=== PATIENT | male | born 1960 | race Caucasian/White ===

== ENCOUNTER 2023-01-14 20:58 | Outpatient (CLI) | payer BC, SELFPAY | END 2023-01-14 20:59 | disposition home or self-care (01) | PROVIDERS: PCP Family Medicine; Visit Provider Internal Medicine | DX: G47.33 Obstructive sleep apnea (adult) (pediatric) (principal); G47.31 Primary central sleep apnea | CPT/HCPCS: 95811 ==

== ENCOUNTER 2023-05-26 03:38 | Emergency (ER) | payer BC, SELFPAY ==
[2023-05-26] VITALS (20 sets, daily range): BP systolic 129–159; BP diastolic 81–96; PULSE 57–68; RESP 16–20; TEMP 36.9–37.1; O2SAT 93–98; BMI 31.4
--- NOTE | 2023-05-26 04:08 | CT_ITS ---
Final Report Patient: MARC GANDARA Facility:?[facility] Patient ID:?[id number] Site Patient ID:?[id number]. Site :?[id number] Study:?CT Chest/Abd/Pelvis ANGIO DISSECTION W/ 95CC ISOVUE -05/26/2023 5:02:43 AM Ordering Physician:YANG Final Report: INDICATION: History of aneurysm, new left-sided chest pain for 1 day TECHNIQUE: CT chest without contrast and CT chest, abdomen and pelvis acquired with 95 mL Isovue IV contrast, dissection protocol. COMPARISON: 10/10/[address] FINDINGS: CHEST: Cardiovascular structures: The unenhanced images demonstrate no evidence of aortic intramural hematoma. The ascending aorta is dilated at 5.0 cm. No aortic dissection. Aortic valve is calcified. Heart size is normal. Mediastinum and macy: No mass or adenopathy. Lungs and pleura: 5 mm pulmonary nodule anterior right upper lobe image 37 series 5. Lungs otherwise clear. Tiny left pleural effusion. Chest wall and axilla: No mass or adenopathy. Bones: Unremarkable for age. ABDOMEN AND PELVIS: Liver: Unremarkable. Gallbladder and bile ducts: Cholelithiasis. Pancreas: Unremarkable. Spleen: Unremarkable. Adrenal glands: Unremarkable. Kidneys: Postop changes in the right kidney. GI tract: Appendectomy. Vascular structures: Unremarkable. Lymph nodes: Unremarkable. Miscellaneous: Unremarkable. No free air or significant free fluid. Pelvic Organs: Unremarkable. Bones: Unremarkable for age. IMPRESSION: 1. No aortic dissection. 2. Ascending aortic aneurysm measuring 5.0 cm. 3. Tiny left pleural effusion. 4. Cholelithiasis. 5. 5 mm right upper lobe pulmonary nodule. Please see follow-up guidelines below. [employer] G[employer] - SOLID NODULES: SINGLE LOW RISK - nodule less than 6 mm: No routine follow-up. - nodule 6-8 mm: CT at 6-12 months, then consider CT at 18-24 months. - nodule greater than 8 mm: Consider CT at 3 months, PET/CT or tissue sampling. SINGLE HIGH RISK - nodule less than 6 mm: Optional CT at 12 months. - nodule 6-8 mm: CT at 6-12 months, then CT at 18-24 months. - nodule greater than 8 mm: Consider CT at 3 months, PET/CT or tissue sampling. MULTIPLE LOW RISK - nodule less than 6 mm: No routine follow-up. - nodule 6-8 mm: CT at 3-6 months, then consider CT at 18-24 months. - nodule greater than 8 mm: CT at 3-6 months, then consider CT at 18-24 months. MULTIPLE HIGH RISK - nodule less than 6 mm: Optional CT at 12 months. - nodule 6-8 mm: CT at 3-6 months, then at 18-24 months. - nodule greater than 8 mm: CT at 3-6 months, then at 18-24 months. Please note that all CT scans at this facility use dose modulation, iterative reconstruction, and/or weight-based dosing when appropriate to reduce radiation dose to as low as reasonably achievable. Dictated by Carlo Marx MD @ 05/26/2023 7:22:34 AM (Electronic Signature)
[2023-05-26 04:32] LABS: Basophils Absolute Auto 0.03 K/uL (0.00-0.30); Basophils Percent Auto 0.6 % (0.0-3.0); Eosinophils Absolute Auto 0.14 K/uL (0.00-0.50); Eosinophils Percent Auto 2.7 % (0.0-7.0); Hematocrit 44.2 % (37.0-53.0); Hemoglobin* 15.8 gm/dL (13.5-17.5); Immature Granulocytes Abs Auto 0.06 K/uL (0.00-0.30); Immature Granulocytes Pct Auto 1.1 %; Lymphocytes Absolute Auto 1.32 K/uL (0.90-2.90); Lymphocytes Percent Auto 25.2 % (20-44); Mean Corpuscular HGB Conc 36 gm/dL (32-36); Mean Corpuscular Hemoglobin 31 pg (26-34); Mean Corpuscular Volume 86 fL (80-100); Monocytes Percent Auto 11.3 % (0.0-11.0); Neutrophils Percent Auto 59.1 % (42.0-72.0); Platelet Count* 160 K/uL (140-440); RDW Coefficient of Variation % 11.9 % (11.5-15.5); Red Blood Count 5.12 m/uL (4.30-5.90); White Blood Count* 5.24 K/uL (4.50-11.00)
[2023-05-26 04:35] LABS: Chloride* 108 mmol/L (96-114); Potassium* 3.9 mmol/L (3.6-5.1); Sodium* 138 mmol/L (135-149)
--- NOTE | 2023-05-26 04:35 | ED.GENADULT ---
HPI - General Adult General Chief complaint: Chest Pain Stated complaint: Pain - left Nipple. Time Seen by Provider: 05/26/23 03:56 Source: patient Mode of arrival: ambulatory Limitations: no limitations History of Present Illness HPI narrative: 62-year-old male with history of what sounds like both ascending and descending aortic aneurysm presents the emergency department for evaluation of chest pain. This is new for him, no prior similar symptoms. Chest pain woke him from sleep at around 2, 90 minutes prior to arrival. it is in the left lateral chest, radiating into the nipple area. Not associated with any shortness of breath, dizziness, headache. Constant in nature. No prior history of coronary artery disease. Reports that he also has a bicuspid aortic valve, this and the aneurysms were discovered in January when he had an echo as part of his workup for sleep apnea. He has what sounds like an auto PAP device. The echo showed bicuspid aortic valve which per his description does not seem to need repair at this time but for the aneurysms, it sounds as though they recommended a 6 month follow-up but did let him know that he may require surgery at some point and put him on some lifting restrictions. No abdominal pain, no nausea or vomiting. No trauma or injury. Past medical history notable for hypertension, prediabetes. Only home med is 25 mg of losartan, no allergies. No blood thinners. Nonsmoker. ROS notable for the chest symptoms as above only, otherwise denies times 12 systems, has been feeling well. Related Data Home Medications Medication Instructions Recorded Confirmed losartan 25 mg tablet 25 mg PO DAILY 05/26/23 05/26/23 Allergies Allergy/AdvReac Type Severity Reaction Status Date / Time No Known Drug Allergies [facility] Verified 05/26/23 05:05 [facility] Social History Non-prescribed substance use: denies use Exam Const: Vital Signs, click to edit/add: Vital Signs - 24 hr 05/26/23 03:47 05/26/23 05:22 05/26/23 06:19 Temperature 98.7 F 98.4 F Pulse Rate [Pulse Oximeter] 68 65 60 Respiratory Rate 20 18 16 Blood Pressure [Ri ght Upper Arm] 159/96 H 139/87 129/92 H Pulse Oximetry 98 95 95 Oxygen Delivery Me thod Room Air Room Air Room Air Documenting provider has reviewed patient's vital signs: yes Common normals: no apparent distress and alert General appearance: cooperative and well kempt HENMT: Common normals: normocephalic Head and scalp: normocephalic Face and sinus: normal facial exam Mouth: oral and palatal mucosa normal Throat: posterior oropharynx normal Eye: Common normals: conjunctivae normal Conjunctiva: conjunctiva(e) normal Neck & C-Spine: Common normals: full ROM, no lymphadenopathy, thyroid normal and no carotid bruits Thyroid: thyroid normal Chest: Common normals: inspection of chest normal and palpation of chest normal Resp: Common normals: normal respiratory effort, no use of accessory muscles and clear to auscultation bilaterally Effort & inspection: able to speak in complete sentences Auscultation: clear to auscultation bilaterally Cardio: Common normals: regular rate and regular rhythm Rate: regular rate Rhythm: regular rhythm Other: Early to mid systolic murmur consistent with known history of bicuspid aortic valve. Located at the upper sternal border. GI: Common normals: Normal to inspection, nondistended, normoactive bowel sounds present, soft to palpation, non-tender, no hepatosplenomegaly and no masses Palpation: soft and no hepatosplenomegaly Extremity: Common normals: normal to inspection, normal capillary refill and no pedal edema Neuro: Sensorium/orientation: alert Speech: speech normal Motor exam: strength 5/5 throughout Psych: Common normals: speech normal Appearance: well kempt Attitude: engaged Speech: normal speech Mood and affect: euthymic mood Skin: Common normals: no rashes or lesions noted General skin exam: no rashes or lesions noted Course Course ED Course: New onset chest pain in patient with known history of aortic aneurysms. Concern for possible worsening of aneurysm, dissection, coronary artery disease, musculoskeletal etiology, among others. Recommend skipping chest x-ray and going straight to CT of the aorta due to his history. Also recommend EKG, basic labs including troponins, BNP. Await findings. No interventions until after imaging. Reevaluation(s) Time of Reevaluation #1: 05:50 Reevaluation #1: Let patient know of his normal labs. Counseled him that unfortunately we will not have a radiologist to read his CT scan until after 7:00 a.m.. We did just miss the window for radiologist coverage. He is not symptomatic. Repeat trop is pending. Await CT findings. Time of Reevaluation #2: 07:36 Reevaluation #2: Thankfully, patient was understanding regarding the delay in reading the CT scan. He was informed of the stable aneurysm and otherwise normal results. He was reassured by this. His pain has improved. No treatments were given here in the ED. condition was discussed, possibly musculoskeletal versus precordial type chest pain. No dangerous etiology found. Alarm symptoms reviewed that would warrant ED presentation. Conservative management for now discussed. Patient verbalizes understanding and agreement. See written instructions. Vital Signs Vital signs: Initial Vital Signs Temperature 98.7 F 05/26/23 03:47 Temperature Source Temporal Artery Scan 05/26/23 03:47 Pulse Rate 68 05/26/23 03:47 Respiratory Rate 20 05/26/23 03:47 Blood Pressure 159/96 H 05/26/23 03:47 Blood Pressure Mean 117 H 05/26/23 03:47 Pulse Oximetry 98 05/26/23 03:47 Oxygen Delivery Method Room Air 05/26/23 03:47 Vital Signs Temperature 98.7 F 05/26/23 03:47 Pulse Rate 68 05/26/23 03:47 Respiratory Rate 20 05/26/23 03:47 Blood Pressure 159/96 H 05/26/23 03:47 Pulse Oximetry 98 05/26/23 03:47 Oxygen Delivery Method Room Air 05/26/23 03:47 Temperature 98.4 F 05/26/23 05:22 Pulse Rate 60 05/26/23 06:19 Respiratory Rate 16 05/26/23 06:19 Blood Pressure 129/92 H 05/26/23 06:19 Pulse Oximetry 95 05/26/23 06:19 Oxygen Delivery Method Room Air 05/26/23 06:19 Medical Decision Making Lab Data Lab results reviewed: Yes I reviewed the patient's lab results Lab results narrative: All initially reassuring. Labs: Lab Results 05/26/23 05/26/23 Range/Units 03:57 05:39 WBC 5.24 (4.50-11.00) K/uL RBC 5.12 (4.30-5.90) m/uL Hgb 15.8 (13.5-17.5) gm/dL Hct 44.2 (37.0-53.0) % MCV 86 (80-100) fL MCH 31 (26-34) pg MCHC 36 (32-36) gm/dL RDW Coeff of Rommel 11.9 (11.5-15.5) % Plt Count 160 (140-440) K/uL Neut % (Auto) 59.1 (42.0-72.0) % Lymph % (Auto) 25.2 (20-44) % [place] % (Auto) 11.3 H (0.0-11.0) % Eos % (Auto) 2.7 (0.0-7.0) % Baso % (Auto) 0.6 (0.0-3.0) % Neut # (Auto) 3.10 (1.7-7.0) K/uL Lymph # (Auto) 1.32 (0.90-2.90) K/uL [place] # (Auto) 0.60 (0.00-0.90) K/UL Eos # (Auto) 0.14 (0.00-0.50) K/uL Baso # (Auto) 0.03 (0.00-0.30) K/uL Abs Immat Gran (auto) 0.06 (0.00-0.30) K/uL Imm/Tot Granulo (auto) 1.1 % Sodium 138 (135-149) mmol/L Potassium 3.9 (3.6-5.1) mmol/L Chloride 108 (96-114) mmol/L Carbon Dioxide 21 (20-32) mmol/L Anion Gap 9 (7-15) mEq/L BUN 16 (7-30) mg/dL Creatinine 0.9 (0.5-1.5) mg/dL Estimated Creat Clear 79.48 Estimated GFR 95 ml/min Glucose 158 H (60-115) mg/dL Calcium 9.2 (8.4-10.6) mg/dL Troponin I < 0.01 L (0.01-0.04) ng/mL C-Reactive Protein < 0.5 L (0.5-1.0) mg/dL NT-Pro-B Natriuret Pep 39 pg/mL POC Troponin I 0.00 L (0.01-0.04) ng/ml Imaging Data CT Chest/Ab/Pelvis: Attestation: I have reviewed the pertinent imaging results. My impression: No evidence of intramural hematoma or dissection. Radiologist's impression: IMPRESSION: 1. No aortic dissection. 2. Ascending aortic aneurysm measuring 5.0 cm. 3. Tiny left pleural effusion. 4. Cholelithiasis. 5. 5 mm right upper lobe pulmonary nodule. Please see follow-up guidelines below. ECG Data Attestation: I personally reviewed and interpreted this ECG as follows: Prior ECG tracings: not available for review Interpretation: Normal sinus rhythm, rate of 62. Normal intervals and axis. No significant ST or T-wave abnormalities. Good R-wave progression. Normal EKG. Discharge Plan Discharge Clinical Impression: Chest pain Patient Disposition: Home w/ Parent or Adult Condition: Improved Instructions: Chest Pain (DC) Additional Instructions: As we discussed, there are no signs of heart attack, abnormal heart rhythm, pneumonia, lung problems, stomach issues or other dangerous abnormality causing her chest pain today. Most importantly, there are no signs of aortic dissection or any meaningful change in your known aortic aneurysm. Our radiologist measured it at 5.0 cm today which should be considered stable. Small changes in measurement can be expected with different studies. Keep any follow-up appointments that you currently have scheduled with your vascular team. It would be reasonable for you to send a message of how this CT scan was stable in case this adjusts when they would want to repeat your next scan, sometimes they will push it back farther. As discussed, this could be from arthritis in the rib joints, a pinched nerve, many other causes. It is okay to try Tylenol and ibuprofen. If you start having worsening chest pain, especially with exertion I would be concerned. If her chest pain is accompanied by a significant shortness of breath, sweatiness, lightheadedness and or other alarming symptoms, please come back to the emergency department. Keep a symptom diary if this keeps happening and try to related to certain foods, activities, other things that may be contributing. If you have mild recurrent episodes, please make a follow-up appointment with her primary care doctor to do more testing. Activity Level: Activity as Tolerated Discharge Diet: Regular Prescriptions: No Action losartan 25 mg tablet 25 mg PO DAILY Follow Up/Referrals: Lion Chan MD [Primary Care Provider] - Stand Alone Forms: [employer] Info Instructions
[2023-05-26 04:38] LABS: Creatinine* 0.9 mg/dL (0.5-1.5); Est. Creatinine Clearance* 79.48; Estimated Glomerular Filt Rate 95 ml/min
[2023-05-26 04:39] LABS: Anion Gap 9 mEq/L (7-15); Blood Urea Nitrogen* 16 mg/dL (7-30); Calcium* 9.2 mg/dL (8.4-10.6); Carbon Dioxide* 21 mmol/L (20-32); Glucose* 158 mg/dL (60-115)
[2023-05-26 04:51] LABS: C Reactive Protein* < 0.5 mg/dL (0.5-1.0); NT Pro B Type NatriureticPept* 39 pg/mL; Slide Review Reflex No; Troponin I* < 0.01 ng/mL (0.01-0.04)
== END 2023-05-26 07:48 | disposition home or self-care (01) ==
PROVIDERS: Emergency Provider Family Medicine; PCP Family Medicine
DX: R07.9 Chest pain, unspecified (principal)
CPT/HCPCS: 36415; 71275; 74174; 80048; 83880; 84484; 85025; 86140; 93005; 99284; 99285; Q9967